=== PATIENT | female | born 1950 | race Caucasian/White ===

== ENCOUNTER 2021-11-04 08:59 | Emergency (ER) | payer OTHER ==
[~2021-11-04] VITALS: Ht 162.6 cm; Wt 70.3 kg
[2021-11-04] MEDS ORDERED: JANUMET 50-1,01 EACH PO (09:16)
[2021-11-04] MEDS ORDERED: ACTOS30 MG PO (09:16)
[2021-11-04] MEDS ORDERED: AGRYLIN0.5 M1 PO (09:17)
[2021-11-04] MEDS ORDERED: PROTONIX40 M1 PO (09:17)
[2021-11-04] MEDS ORDERED: MONTELUKAST SODI4 M1 PO (09:18)
[2021-11-04] MEDS ORDERED: SYNTHROID50 MCG PO (09:18)
[2021-11-04] MEDS ORDERED: CLARITIN10 M1 PO (09:18)
== END 2021-11-04 13:33 | disposition home or self-care (01) ==
LOC: ER 08:59
DX: R10.84 Generalized abdominal pain (principal)